=== PATIENT | female | born 1950 | race Caucasian/White ===

== ENCOUNTER 2016-04-26 01:06 | Observation (INO) | payer MEDICAID ==
[~2016-04-26] VITALS: Ht 160 cm; Wt 38.6 kg
[2016-04-26 08:02] LABS: Basophils # (auto) 0 uL; Basophils % (auto) 0.6 % (0.0-2.0); Eosinophils # (auto) 0 uL; Eosinophils % (auto) 0.6 % (0.0-7.0); Hematocrit 40.1 % (36.0-46.0); Hemoglobin 13.3 g/dL (12.2-16.2); Lymphocytes # (auto) 2.7 uL; Lymphocytes % (auto) 42.8 % (10.0-50.0); Mean Corpuscular Hemoglobin 31.7 pg (28.0-32.0); Mean Corpuscular Hgb Conc. 33.2 g/dL (32.0-36.0); Mean Corpuscular Volume 95.4 fL (80.0-100.0); Mean Platelet Volume 8.6 fL (7.4-10.4); Monocytes # (auto) 0.5 uL; Monocytes % (auto) 7.3 % (0.0-12.0); Neutrophils % (auto) 48.7 % (37.0-80.0); Platelet Count (auto) 283 10^3/uL (140-450); Red Cell Distribution Width 14.7 % (11.6-16.0); White Blood Cell 6.2 10^3/uL (4.4-10.8)
[2016-04-26] MEDS ORDERED: SODIUM CHLORIDE 0.9% 1,000 ML IV ONE (08:03)
[2016-04-26 08:14] LABS: Albumin 3.9 g/dL (3.4-5.0); Anion Gap 11 (5-15); Aspartate Aminotransferase 21 U/L (15-37); BUN/Creatinine Ratio 10.6; Blood Urea Nitrogen 10 mg/dL (7-18); Calcium 8.9 mg/dL (8.5-10.1); Carbon Dioxide 21 mmol/L (21-32); Chloride 108 mmol/L (98-107); GFR African American 77 mL/min; GFR Non-African American 64 mL/min; Glucose 88 mg/dL (74-106); Magnesium 2.5 mg/dL (1.6-2.6); Potassium 3.1 mmol/L (3.5-5.1); Sodium 140 mmol/L (136-145)
[2016-04-26] MEDS ORDERED: MECLIZINE HCL 25 MG TAB PO ONE (08:15)
[2016-04-26] MEDS ORDERED: DIAZEPAM 5 MG/ML 2ML SYRG IV ONE (08:15)
[2016-04-26 08:19] LABS: Alkaline Phosphatase 55 U/L (45-117); Bilirubin, Total 0.4 mg/dL (0.2-1.0); Total Protein 7.3 g/dL (6.4-8.2)
[2016-04-26] MEDS ORDERED: POTASSIUM CHL 10% (20 MEQ/15ML) ORAL SOLN PO ONE (10:15)
[2016-04-26 11:32] VITALS: BP 117/70
== END 2016-04-26 11:36 | disposition home or self-care (01) | DRG 111 ==
LOC: ER 01:09 → OVERFLOW 03:15 → ER 11:36
PROVIDERS: ADMIT Emergency Medicine; ATTEND Emergency Medicine
DX: R42 Dizziness and giddiness (principal); N39.0 Urinary tract infection, site not specified; F41.1 Generalized anxiety disorder; G40.909 Epilepsy, unspecified, not intractable, without status epilepticus; F17.210 Nicotine dependence, cigarettes, uncomplicated; Z85.3 Personal history of malignant neoplasm of breast
CPT/HCPCS: 36415; 71020; 80053; 83735; 84443; 84484; 85025; 85379; 93005; 96361; 96374; G0378

== ENCOUNTER 2022-04-11 04:23 | Emergency (ER) | payer MEDICAID ==
[~2022-04-11] VITALS: Ht 175.3 cm; Wt 75.0 kg
[2022-04-11 07:53] LABS: Basophils # (auto) 0.1 10 ^3/uL (0-0.2); Eosinophils # (auto) 0 10 ^3/uL (0-0.8); Eosinophils % (auto) 0.4 % (0.0-7.0); Hematocrit 41.9 % (36.0-46.0); Hemoglobin 13.9 g/dL (12.2-16.2); Lymphocytes # (auto) 2.2 10 ^3/uL (0.4-5.4); Lymphocytes % (auto) 29.5 % (10.0-50.0); Mean Corpuscular Hgb Conc. 33.1 g/dL (32.0-36.0); Mean Corpuscular Volume 93.5 fL (80.0-100.0); Monocytes # (auto) 0.4 10 ^3/uL (0-1.3); Monocytes % (auto) 4.8 % (0.0-12.0); Neutrophils # (auto) 4.9 10 ^3/uL (1.6-8.6); Neutrophils % (auto) 64.3 % (37.0-80.0); Nucleated Red Blood Cells % 0.2 %; Red Blood Cells 4.48 10^6/uL (4.0-5.20); Red Cell Distribution Width 13.6 % (11.8-14.3); White Blood Cell 7.6 10^3/uL (4.4-10.8)
[2022-04-11 08:05] LABS: Albumin 4.1 g/dL (3.4-5.0); Calcium 9.7 mg/dL (8.5-10.1)
[2022-04-11 08:12] LABS: BUN/Creatinine Ratio 7.6; Bilirubin, Total 0.4 mg/dL (0.2-1.0); Total Protein 7.4 g/dL (6.4-8.2)
[2022-04-11 08:51] LABS: Urine Specific Gravity 1.013 (1.001-1.035)
[2022-04-11 08:52] LABS: Urine Blood Normal /uL (Negative)
[2022-04-11 09:30] VITALS: BP 109/72
[2022-04-11] MEDS ORDERED: NITR-87 PO (09:38)
[2022-04-11] MEDS ORDERED: HYDR25CA PO (09:38)
== END 2022-04-11 09:51 | disposition home or self-care (01) ==
LOC: ER 04:23 → EDBD 04:23 → ER 09:51
DX: R42 Dizziness and giddiness (principal); F41.1 Generalized anxiety disorder; N30.00 Acute cystitis without hematuria; F17.210 Nicotine dependence, cigarettes, uncomplicated
CPT/HCPCS: 36415; 70450; 71046; 80053; 81003; 83880; 84484; 85025; 93005